=== PATIENT | female | born 1985 | race African-American/Black ===

== ENCOUNTER 2016-12-08 09:43 | Emergency (ER) | payer BC ==
--- OUTSIDE RECORDS SUMMARY | 2016-12-08 10:06 | XMS REPORT | Continuity of Care Document ---
:1985 Author Organization [facility] ([facility]) Address [address] [place] [address] Phone [phone] Care Team Providers Name Role Phone Nicole Heart Primary Care Provider [phone] Source Comments This disclosure is being made pursuant to the Care Everywhere program, applicable federal and state laws, and may not contain all informaitonavailable regarding this patient.[facility] ([facility]) Active Allergies and Adverse Reactions No Known Allergies Current Medications Prescription Sig. Disp. Refills Start Date End Date Status multivitamin with Take by mouth Active minerals PO daily. Active Problems Problem Noted Date Normal spontaneous vaginal delivery 01/11/2015 History of atrial fibrillation 01/11/2015 Overview: CARDIOVASCULAR PROCEDURES ECHO Echo:Normal left ventricular size and systolic function.LV Ejection Fraction=65 % (based on visual estimate).No significant valve disorder. 01/11/2015 Anemia 01/11/2015 Hypoalbuminemia 01/11/2015 Resolved Problems Problem Noted Date Resolved Date Shortness of breath 01/11/2015 03/16/2016 Palpitations 01/11/2015 03/16/2016 A-fib 01/11/2015 01/11/2015 New onset a-fib 01/11/2015 03/16/2016 Acute systolic heart failure 01/11/2015 01/12/2015 Peripartum cardiomyopathy 01/11/2015 01/12/2015 Immunizations Name Dates Previously Given Next Due Influenza, unspecified 09/13/2014 Social History Tobacco Use Types Packs/Day Years Used Date Never Smoker Alcohol Use Drinks/Week oz/Week Comments No Last Filed Vital Signs Vital Sign Reading Time Taken Blood Pressure 118/78 03/16/2016 9:58 AM CDT Pulse 82 03/16/2016 9:58 AM CDT Temperature 36.6 C (97.9 F) 01/12/2015 8:38 AM CDT Respiratory Rate 16 02/03/2015 5:00 PM CDT Height 1.727 m (5' 7.99") 03/16/2016 9:58 AM CDT Weight 82.555 kg (182 lb) 03/16/2016 9:58 AM CDT Body Mass Index 27.68 03/16/2016 9:58 AM CDT Oxygen Saturation 99% 01/12/2015 9:50 AM CDT Plan of Care Health Maintenance Due Date Last Done Comments Hepatitis B Vaccine (1 of 3 - Primary Series) 1984 Tdap Vaccine 1995 Lipid Disorder Screening 2002 MMR Vaccine 2002 Td Vaccine 2002 Varicella Vaccine (1 of 2 - Adult - No Evidence of 2002 Immunity) Cervical Cancer Screening 2014 Influenza Vaccine: Seasonal (#1) 02/28/2016 09/13/2014 Results from Last 3 Months Not on file
--- NOTE | 2016-12-08 10:33 | ERNOTE ---
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 SHE REMEMBERS STARTING TO BREATHE FAST AND SHE WENT TO A QUIET ROOM ALONE . IN THE PAST SHE SAYS SHE TRIES TO GET SOME WHERE QUIET AND TAKE "DEEP BREATHS". SHE EVIDENTLY PASSED OUT AND FELL TO THE FLOOR FROM A SITTING POSITION AND ANOTHER TEACHER CALLED EMS. SHE DENIES ANY INJURY AND SAYS SHE FEELS FINE NOW. SHE CAN NOT RECALL ANY THING SPECIFIC THAT CAUSED THE PANIC ATTACK , AT LEAST NOT AT SCHOOL BUT SAYS SHE HAS A LOT OF OTHER STRESSES. SHE DENIES H.A. CHEST PAIN, CURRENT ILLNESS. SHE IS NOT ON ANY MEDS AND HAS NO ONGOING ILLNESS OR HEALTH PROBLEMS. THERE IS A FHX OF "HEART PROBLEMS". SHE HAD GESTATIONAL DIABETES AND PRE-ECLAMPSIA WITH HER LAST IN JUN. BUT EVERY THING CORRECTED AFTERWARD. SHE SAYS SHE IS NOT NOW. Review of Systems - Review of Systems Constitutional: Present: See HPI EYE: Present: no symptoms reported ENT: Present: no symptoms reported Respiratory: Present: shortness of breath Cardiology: Present: no symptoms reported Gastrointestinal/Abdominal: Present: no symptoms reported Genitourinary: Present: no symptoms reported Musculoskeletal: Present: no symptoms reported Skin: Present: no symptoms reported Neurological: Present: dizziness/light-headedness Endocrine: Present: no symptoms reported Hematologic/Lymphatic: Present: no symptoms reported Psych: Present: anxiety All Other Systems: All systems neg except as marked - Patient's Past Medical History Patient History - Medical: Other Patient History - Cardiac/Respiratory: Atrial Fibrillation Patient History - Cancer: No Hx of Cancer Patient History - Surgical Procedures: No surgical history Patient History - Other: None LMP (Calendar): 11/08/16 - Family History Father Family History - Medical: Diabetes Type 2, Other - Social History Living Situations: home Abuse History: No History of abuse Psych History: Hx of Depression Smoking Status: Never smoker Alcohol Use: none Drug Use: none - Immunizations Immunizations Up to Date: Yes Hx Pneumococcal Vaccination: No History of Influenza Vaccine: Yes Physical Exam - Physical Exam General Appearance: Present: wd/wn, alert, no apparent distress Eye Exam: Normal inspection: bilateral, PERRL: bilateral, EOMI: bilateral Ears, Nose, Throat: Present: normal ENT inspection Neck: Present: normal inspection Respiratory: Present: no respiratory distress, normal breath sounds, no accessory muscle use, chest nontender, lungs clear Cardiovascular/Chest: Present: regular rate, rhythm, no murmur, normal peripheral pulses Peripheral Pulses: N=norm/S=strong/W=weak/B=bound/A=absent: Radial (R): Normal, Radial (L): Normal, Dorsalis-pedis (R): Normal, Dorsalis-pedis (L): Normal Gastrointestinal/Abdominal: Present: normal bowel sounds Back Exam: Present: normal inspection Extremity Exam: Present: normal inspection, non-tender, normal range of motion, no edema Neurological Exam: Present: alert, oriented, normal mood/affect, no motor/ sensory deficits, 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 Results and Orders: LABS WNL - Vital Signs Patient's Vital Signs:: I have reviewed the patient's vital signs. Vital Signs: Vital Signs 12/08/16 09:45 Temperature 36.6 C Pulse Rate 100 Respiratory 14 Rate Blood Pressure 144/86 O2 Sat by Pulse 99 Oximetry ORTHOSTATICS ARE NORMAL , SEE NURSES NOTES. - EKG EKG: NSR EKG read: Interp. by me - Progress/Reassessment Chief Complaint: Syncopal Episode Progress:: Improved Plan - Plan Plan: GOING THRU THE PTS RECORDS I LEARN THAT SHE HAS HAD AN EPISODE OF RECORDED ATRIAL FIB WITH RVR IN ABOUT 2 YEARS AGO AND WAS ON MEDICATION FOR A SHORT TIME. RESEARCHING MORE I FIND AN EKG FROM 09/16/2015 RECORDING AFIB WITH RVR. THERE IS NO RECORD OF HER MEDS AT THE TIME BUT SHE DOES REMEMBER BEING ON METOPROLOL FOR A WHILE. SHE WAS NEVER ON ANY ANTICOAGULANT AND HAS NEVER FOLLOWED WITH A PCP OTHER THAN SOHAN WORRELL WHEN SHE WAS . I TALKED TO DR NICOLE OFFICE TO CHUCK Castellanos/Annika ON HER HOSTER MONITOR. Departure Clinical Impression: Syncope and collapse, Hyperventilation syndrome, History of atrial fibrillation - Departure Disposition: Home Follow Up Needed Condition: Good Instructions: Syncope, [id number], Atrial Fibrillation, [id number], Holter Monitoring Additional Instructions: WE HAVE SET UP AN APPOINTMENT FOR YOU FOR 15 DECEMBER AT 1015, APPT IS 1030 , BUT THEY NEED TO UPDATE INFO. RETURN TO THE ER IF YOU HAVE PROBLEMS BEFORE THEN. Referrals: Michele Nicole MD [Staff Physician] -
[2016-12-08 10:42] LABS: Hematocrit 35.2 % (37.0-47.0); Hemoglobin 11.4 gm/dL (12.5-16.0); Mean Cell Volume 79.1 fl (78-100); Mean Corpuscular Hemoglobin 25.6 pg (27-31); Mean Corpuscular Hgb Conc 32.4 g/dl (32-36); Mean Platelet Volume 9.5 fl (6.0-9.5); Neutrophil # 4.8 K/mm3 (1.3-6.0); Neutrophil % 63.2 % (42-75.0); Platelet Count 391 K/mm3 (150-450); Red Blood Count 4.45 M/mm3 (4.2-5.4); Red Cell Distribution Width 14.4 % (11.5-14.0); White Blood Count 7.6 K/mm3 (4.0-10.5)
[2016-12-08 10:50] LABS: Anion Gap 11.8 mmol/L (6.8-13.8); BUN/Creatinine Ratio 16.7 (9.0-21.6); Bilirubin, Total 0.3 mg/dL (0.0-1.1); Ca. Corrected For Albumin 9.1 mg/dL (8.4-10.2); Calcium * 8.6 mg/dL (7.9-10.9); Potassium 3.8 mmol/L (3.4-4.6); Total Protein 6.9 gm/dL (6.2-8.2)
[2016-12-08 10:59] LABS: Urine Bilirubin Negative (NEGATIVE); Urine Blood 25 /ul (NEGATIVE); Urine Ketone Negative (NEGATIVE); Urine Nitrite Negative (NEGATIVE); Urine Protein Negative (NEGATIVE); Urine Specific Gravity 1.015 SP.GR. (1.005-1.010); Urine Urobilinogen Normal (NORMAL)
[2016-12-08 11:10] LABS: Urine Appearance Clear; Urine Color Yellow; Urine RBC 0-5 /hpf (0-5); Urine WBC 0-5 /hpf (0-5)
[2016-12-08 11:11] LABS: Urine Bacteria 1+
[2016-12-08 12:29] VITALS: BP 135/63
== END 2016-12-08 13:11 | disposition home or self-care (01) ==
LOC: ER 09:43
DX: R55 Syncope and collapse (principal); Z86.79 Personal history of other diseases of the circulatory system

== ENCOUNTER 2017-04-25 20:23 | Emergency (ER) | payer BC, OTHER ==
[2017-04-25 20:35] VITALS: BP 148/100
[2017-04-25] MEDS ORDERED: AMOX TR/POTASSIUM CLAVULANATE 875 MG TABLET PO ONE (20:52)
[2017-04-25] MEDS ORDERED: AMOX TR/POTASSIUM CLAVULANATE 875 MG TABLET ONE (20:56)
--- NOTE | 2017-04-25 20:57 | ERNOTE ---
Date of Service: 04/25/17 Time Seen by Provider: 04/25/17 20:44 Stated Complaint: URI SYMPTOMS Presenting Symptoms:: cough, sore throat, runny nose Source: patient, RN notes reviewed Exam Limitations: no limitations Immunizations: IMMUNIZATION HX Immunizations Up to Date Yes History of Influenza Vaccine No Hx Pneumococcal Vaccination No Allergies/Adverse Reactions: Allergies No Known Allergies Allergy (Verified 04/25/17 20:35) Home Medications: HOME MEDICATIONS Amox Tr/Potassium Clavulanate [Augmentin 875-125 Tablet] 875 mg PO Q12H #20 tab 04/25/17 [Last Taken Unknown] - History of Present Ilness Narrative: 31 y/o female presents to the ED with URI symptoms for several days that have gotten worse. She has had sick contacts at home. She is approximately 10 weeks and has not yet had any care. Frequency/Possible Cause: Reports: illness exposure Prior Treatment: Denies: recently seen Review of Systems - Review of Systems Constitutional: Present: chills, diaphoresis, fatigue, malaise EYE: Absent: eye discharge, tearing ENT: Present: nose congestion, nasal drainage, sore throat. Absent: ear pain Respiratory: Present: cough. Absent: shortness of breath, wheezing Cardiology: Present: no symptoms reported Gastrointestinal/Abdominal: Absent: nausea, vomiting, abdominal pain Genitourinary: Present: no symptoms reported Musculoskeletal: Absent: muscle pain, joint pain Skin: Absent: rash, lesions Neurological: Present: headache. Absent: dizziness/light-headedness Endocrine: Present: no symptoms reported Hematologic/Lymphatic: Present: no symptoms reported Psych: Present: no symptoms reported - Patient's Past Medical History Patient History - Medical: No pertinent hx Patient History - Cardiac/Respiratory: Atrial Fibrillation, Cardiomyopathy - LVH EF 45-50 Patient History - Cancer: No Hx of Cancer Patient History - Surgical Procedures: Patient History - Other: None LMP (females 10-50): LMP (Calendar): 02/09/17 - Family History Father Family History - Medical: Diabetes Type 2, Other - Social History Living Situations: spouse Abuse History: No History of abuse Psych History: Hx of Depression Smoking Status: Never smoker Have you smoked in the past 12 months: No Do you dip or chew tobacco: No Alcohol Use: none Drug Use: none - Immunizations Immunizations Up to Date: Yes Hx Pneumococcal Vaccination: No History of Influenza Vaccine: No Physical Exam - Physical Exam General Appearance: Present: wd/wn, alert, no apparent distress Eye Exam: Normal inspection: bilateral Ears, Nose, Throat: Present: nasal congestion, sinus pain/drainage, pharyngeal erythema. Absent: abnormal TM (R), abnormal TM (L), pharyngeal swelling Neck: Present: normal inspection, nontender, supple Respiratory: Present: no respiratory distress, normal breath sounds, no accessory muscle use, lungs clear Cardiovascular/Chest: Present: regular rate, rhythm, no murmur Extremity Exam: Present: normal inspection, normal range of motion, no edema Neurological Exam: Present: alert, oriented, normal mood/affect, no motor/ sensory deficits Skin Exam: Present: normal color, warm/dry ED Progress - Results and Orders Patient's Lab Results:: I have reviewed the patient's lab results. - Vital Signs Patient's Vital Signs:: I have reviewed the patient's vital signs. Vital Signs: Vital Signs 04/25/17 20:27 Temperature 36.5 C Pulse Rate 126 H Respiratory 16 Rate Blood Pressure 148/100 O2 Sat by Pulse 98 Oximetry - Progress/Reassessment Chief Complaint: Upper Respiratory Symptoms Progress:: Unchanged Departure Clinical Impression: Sinusitis, acute Qualifiers: Sinusitis location: unspecified location Recurrence: non-recurrent Qualified Code(s): J01.90 - Acute sinusitis, unspecified - Departure Disposition: Home Follow Up Needed Condition: Stable Instructions: Sinusitis, Adult, [id number], Form - Excuse from Work, School, or Physical Activity Additional Instructions: Nasal saline spray as needed Tylenol for pain/fever [facility] - based on your last period you are 10 5/7 weeks and due 11/16/17 Prescriptions: Amox Tr/Potassium Clavulanate [Augmentin 875-125 Tablet] 875 mg PO Q12H #20 tab
== END 2017-04-25 21:01 | disposition home or self-care (01) ==
LOC: ER 20:23
DX: J01.90 Acute sinusitis, unspecified (principal); Z33.1 Pregnant state, incidental; Z3A.10 10 weeks gestation of pregnancy

== ENCOUNTER 2017-09-27 02:06 | Emergency (ER) | payer BC, OTHER ==
[2017-09-27 03:07] LABS: Hematocrit 35.8 % (37.0-47.0); Hemoglobin 12.1 gm/dL (12.5-16.0); Mean Cell Volume 81.7 fl (78-100); Mean Corpuscular Hemoglobin 27.6 pg (27-31); Mean Corpuscular Hgb Conc 33.8 g/dl (32-36); Mean Platelet Volume 10.2 fl (6.0-9.5); Neutrophil # 5.3 K/mm3 (1.3-6.0); Neutrophil % 62.7 % (42-75.0); Platelet Count 288 K/mm3 (150-450); Red Blood Count 4.38 M/mm3 (4.2-5.4); Red Cell Distribution Width 17.3 % (11.5-14.0); White Blood Count 8.5 K/mm3 (4.0-10.5)
[2017-09-27 03:08] LABS: Urine Bilirubin Negative (NEGATIVE); Urine Blood Negative /ul (NEGATIVE); Urine Ketone Negative (NEGATIVE); Urine Nitrite Negative (NEGATIVE); Urine Protein Negative (NEGATIVE); Urine Urobilinogen Normal (NORMAL)
--- NOTE | 2017-09-27 03:11 | ERNOTE ---
Chest Pain/Cardiac HPI Chief Complaint: Palpitations Time Seen by Provider: 09/27/17 02:18 Source: patient Exam Limitations: no limitations Immunizations: IMMUNIZATION HX Immunizations Up to Date Yes History of Influenza Vaccine Yes Hx Pneumococcal Vaccination No Allergies/Adverse Reactions: Allergies No Known Allergies Allergy (Verified 09/09/17 10:39) Home Medications: HOME MEDICATIONS Ferrous Sulfate [Iron] 325 mg PO BID 07/26/17 [Last Taken 07/25/17] Vits96/Iron Fum/Folic [ S] 1 tab PO DAILY 07/26/17 [Last Taken Unknown] Acetaminophen [Tylenol] 650 mg PO Q4H PRN 09/09/17 [Last Taken Unknown] Narrative: Pt States she woke up around 00:30 and had some dizziness and palpitations. she attempted to go back to sleep but could not. She was brought in by EMS with a-fib with RVR at approx 140 bpm. She continues to be minimally symptomatic with sight dizziness and some palpitations. Timing: constant Severity/Quality: moderate Review of Systems - Review of Systems Constitutional: Absent: recent illness ENT: Present: no symptoms reported Respiratory: Absent: shortness of breath, cough Cardiology: Present: See HPI. Absent: chest pain Gastrointestinal/Abdominal: Absent: nausea, vomiting Genitourinary: Present: no symptoms reported Musculoskeletal: Present: no symptoms reported Skin: Present: no symptoms reported Neurological: Present: no symptoms reported Endocrine: Present: no symptoms reported - Patient's Past Medical History Patient History - Medical: No pertinent hx Patient History - Cardiac/Respiratory: Atrial Fibrillation, Cardiomyopathy Patient History - Cancer: No Hx of Cancer Patient History - Surgical Procedures: Patient History - Other: None LMP (females 10-50): - Family History Father Family History - Medical: Diabetes Type 2, Other - Social History Living Situations: home Abuse History: No History of abuse Psych History: Hx of Depression Smoking Status: Never smoker Alcohol Use: none Drug Use: none - Immunizations Immunizations Up to Date: Yes Hx Pneumococcal Vaccination: No History of Influenza Vaccine: Yes Physical Exam - Physical Exam General Appearance: Present: wd/wn, alert, no apparent distress Head Exam: Present: normal inspection, no evidence of injury Neck: Present: normal inspection, nontender Respiratory: Present: no respiratory distress, normal breath sounds, no accessory muscle use Cardiovascular/Chest: Present: tachycardia, irregularly irregular Gastrointestinal/Abdominal: Present: nontender, distended - uterus appropriate for GA. FHT's 140 Back Exam: Present: normal inspection, normal range of motion Extremity Exam: Present: normal inspection, non-tender Neurological Exam: Present: alert, oriented, normal mood/affect, no motor/ sensory deficits Skin Exam: Present: normal color, warm/dry Lymphatic Exam: Present: no adenopathy ED Progress - Results and Orders Patient's Lab Results:: I have reviewed the patient's lab results. Results and Orders: Laboratory Tests 09/27/17 09/27/17 09/27/17 02:53 02:54 02:54 WBC 8.5 Hgb 12.1 L Hct 35.8 L Plt Count 288 PT 9.1 INR (Anticoag Therapy) 0.91 PTT ([place]) 26.2 Sodium Potassium Chloride Carbon Dioxide Anion Gap BUN Creatinine Random Glucose Calcium Total Bilirubin AST ALT Alkaline Phosphatase Troponin I Total Protein Albumin Urine Color Pale yellow Urine Appearance Clear Urine pH 7.0 Ur Specific [place] 1.010 Urine Protein Negative Urine Glucose (UA) Negative Urine Ketones Negative Urine Blood Negative Urine Nitrate Negative Urine Bilirubin Negative Urine Urobilinogen Normal Ur Leukocyte Esterase Negative Urine RBC 0-5 Urine WBC 0-5 Ur Epithelial Cells 5-10 H Urine Bacteria None seen Urine Culture Comments No culture indicated 09/27/17 02:54 WBC Hgb Hct Plt Count PT INR (Anticoag Therapy) PTT ([place]) Sodium 140 Potassium 3.7 Chloride 107 H Carbon Dioxide 22.5 L Anion Gap 14.2 H BUN 5 D Creatinine 0.51 Random Glucose 114 H Calcium 8.9 Total Bilirubin 0.2 AST 21 ALT 24 Alkaline Phosphatase 94 Troponin I Less than 0.017 Total Protein 6.6 Albumin 2.5 L Urine Color Urine Appearance Urine pH Ur Specific [place] Urine Protein Urine Glucose (UA) Urine Ketones Urine Blood Urine Nitrate Urine Bilirubin Urine Urobilinogen Ur Leukocyte Esterase Urine RBC Urine WBC Ur Epithelial Cells Urine Bacteria Urine Culture Comments - Vital Signs Patient's Vital Signs:: I have reviewed the patient's vital signs. Vital Signs: Vital Signs 09/27/17 09/27/17 02:09 02:20 Temperature 36.7 C Pulse Rate 158 H 160 H Respiratory 20 Rate Blood Pressure 136/93 O2 Sat by Pulse 100 Oximetry - EKG EKG: atrial fibrillation - with RVR EKG read: Interp. by me - Progress/Reassessment Chief Complaint: Palpitations Progress:: Unchanged Progress Note-Subjective: Spoke with Dr. Cheney and he thought cardizem may be appropriate but that a consult with [place] would also be appropriate. 09/27/17 03:[address] Landon Sims at [facility]. He asks that the patient be transferred there and they will take care of her and send back once stable. 09/27/17 04:04 09/27/17 04:20 Dr Rivers called back after talking to cardiology and they felt that 2.5 - 5 mg Metoprolol would be safe and may bring her HR down for transport. HR up to 180 - 200 at this time, 5 mg metoprolol ordered. Departure Clinical Impression: Atrial fibrillation with RVR, complicated by cardiac condition, antepartum - Departure Disposition: Short Term Hospital Inpatient Condition: Stable
[2017-09-27 03:20] LABS: Prothrombin Time (Patient) 9.1 Seconds (9.0-11.0)
[2017-09-27 03:22] LABS: INR 0.91 INR (0.90-1.10); Partial Thrombolplastin Time 26.2 Seconds (24-32)
[2017-09-27 03:31] LABS: ALT 24 U/L (19-67); AST 21 U/L (0-48); Albumin * 2.5 gm/dl (3.4-5.0); Alkaline Phosphatase * 94 U/L (50-170); Anion Gap 14.2 mmol/L (6.8-13.8); BUN/Creatinine Ratio 9.8 (9.0-21.6); Bilirubin, Total 0.2 mg/dL (0.0-1.1); Blood Urea Nitrogen 5 mg/dL (3-23); Ca. Corrected For Albumin 9.8 mg/dL (8.4-10.2); Calcium * 8.9 mg/dL (7.9-10.9); Carbon Dioxide 22.5 mmol/L (24-32.6); Chloride 107 mmol/L (97-106); Glucose * 114 mg/dL (70-110); Potassium 3.7 mmol/L (3.4-4.6); Sodium 140 mmol/L (132-142); Total Protein 6.6 gm/dL (6.2-8.2); Troponin I Less than 0.017 ng/ml (0.00-0.10)
[2017-09-27 03:49] LABS: Urine Appearance Clear; Urine Bacteria None Seen; Urine Color Pale Yellow; Urine RBC 0-5 /hpf (0-5); Urine WBC 0-5 /hpf (0-5)
[2017-09-27] MEDS ORDERED: METOPROLOL TARTRATE 1 MG/ML AMPUL IV ONE ×2 (04:12→04:15)
[2017-09-27 04:53] VITALS: BP 107/55
== END 2017-09-27 04:40 | disposition short-term general hospital (02) ==
LOC: ER 02:06
DX: Z3A.32 32 weeks gestation of pregnancy; I42.9 Cardiomyopathy, unspecified; I48.91 Unspecified atrial fibrillation; O99.413 Diseases of the circulatory system complicating pregnancy, third trimester

== ENCOUNTER 2018-11-30 01:42 | Observation (INO) ==
[2018-11-30] MEDS ORDERED: DILTIAZEM HCL 5 MG/ML VIAL IV ONE ×3 (01:58→02:09)
--- NOTE | 2018-11-30 02:07 | ERNOTE ---
Chest Pain/Cardiac HPI Date of Service: 11/30/18 Time Seen by Provider: 11/30/18 01:51 Source: patient Exam Limitations: no limitations Immunizations: IMMUNIZATION HX Immunizations Up to Date Yes History of Influenza Vaccine Yes Hx Pneumococcal Vaccination No Allergies/Adverse Reactions: Allergies No Known Allergies Allergy (Verified 11/27/18 16:07) Home Medications: HOME MEDICATIONS amoxicillin 875 mg-potassium clavulanate 125 mg tablet 1 tab PO Q12H 10 Days #20 tab 11/27/18 [Last Taken Unknown] benzonatate 200 mg capsule 200 mg PO TID PRN #30 cap 11/27/18 [Last Taken Unknown] fluticasone 50 mcg/actuation nasal spray,suspension 2 spray INTRANASAL DAILY #16 g 11/27/18 [Last Taken Unknown] Pain Score #1 Pain Score: 0 Narrative: 33-year-old female in hour ago was taking an antibiotic for sinusitis vomited suddenly went into rapid A. fib patient has a history of atrial fibrillation occurring during her 2 prior pregnancies she is in no discomfort no shortness of breath and denies 0 chest pain Date (Duration): 11/30/18 Time (Timing): 02:05 Timing: constant Severity/Quality: mild Location: other - none Chest Pain Radiation: no radiation Activities at Onset: none Modifying Factors - Worsens: Absent: antacids Nitro Today/Relief: no nitro taken today Aspirin Treatment Today: no aspirin today Associated Symptoms: Present: denies symptoms Prior Chest Pain/Cardiac Workup: Reports: prior chest pain Review of Systems - Review of Systems Constitutional: Present: no symptoms reported EYE: Present: no symptoms reported ENT: Present: no symptoms reported Respiratory: Present: no symptoms reported Cardiology: Present: palpitations Gastrointestinal/Abdominal: Present: no symptoms reported Genitourinary: Present: no symptoms reported Musculoskeletal: Present: no symptoms reported Skin: Present: no symptoms reported Neurological: Present: no symptoms reported Endocrine: Present: no symptoms reported Hematologic/Lymphatic: Present: no symptoms reported Psych: Present: no symptoms reported All Other Systems: All systems neg except as marked Medical History (Updated 11/27/18 @ 16:14 by Charlene Mahmood RN) Atrial fibrillation Onset Date: 10/04/17 Gestational diabetes Onset Date: 10/2014 Hypertension Onset Date: 02/29/16 Late care Onset Date: 08/02/16 Oligohydramnios Onset Date: 10/2014 Surgical History: Surgical History (Updated 11/27/18 @ 16:14 by Charlene Mahmood RN) Previous section Onset Date: 11/06/17 Family History: Family History (Updated 11/27/18 @ 16:16 by Charlene Mahmood RN) Mother Asthma Hypertension Hypothyroidism Father Diabetes Grandfather Heart disease Cancer Grandmother Diabetes CVA (cerebral vascular accident) Social History: Preferred Language Bhutanese Smoking Status Never smoker Abuse History No History of abuse Psych History Hx of Depression (Last Updated 11/27/18 @ 17:26 by Tamra Motta DNP) No Social History Section defined Physical Exam - Physical Exam General Appearance: Present: wd/wn, alert, no apparent distress Head Exam: Present: normal inspection Eye Exam: Normal inspection: bilateral, PERRL: bilateral, EOMI: bilateral Ears, Nose, Throat: Present: normal ENT inspection Neck: Present: normal inspection Respiratory: Present: no respiratory distress Cardiovascular/Chest: Present: regular rate, rhythm Peripheral Pulses: N=norm/S=strong/W=weak/B=bound/A=absent: Carotid (R): Normal, Carotid (L): Normal Gastrointestinal/Abdominal: Present: normal bowel sounds Back Exam: Present: normal inspection, normal range of motion Extremity Exam: Present: normal inspection Neurological Exam: Present: alert, oriented DTR: N=norm/NB=norm/brisk/A=abs/DD=dull/dimin/HC=hyperactive: Bicep (R): Normal, Bicep (L): Normal, Tricep (R): Normal, Tricep (L): Normal Skin Exam: Present: normal color, warm/dry Progress - Results and Orders Patient's Lab Results:: I have reviewed the patient's lab results. - Vital Signs Patient's Vital Signs:: I have reviewed the patient's vital signs. Vital Signs: Vital Signs 11/30/18 01:54 Temperature 36.2 C Pulse Rate 178 H Respiratory Rate 22 H O2 Sat by Pulse Oximetry 98 - EKG EKG #1 EKG: atrial fibrillation EKG read: Interp. by me EKG Comments: Atrial fibrillation RVR with a heart rate [address]-T wave abnormality - X-Ray X-Ray #1 X-Ray: chest Interpretation: Interp. by me X-ray Comments: No acute disease Plan - Plan Plan: cardiazem drip and heparin started ,patient to be admitted to ICU Dr Graham Pierce Clinical Impression: Atrial fibrillation with RVR - Departure Disposition: Short Term Hospital Inpatient Condition: Stable
[2018-11-30] MEDS ORDERED: NORMAL SALINE 1,000 ML IV ONE (02:09)
[2018-11-30 02:16] LABS: Hematocrit 40.6 % (37.0-47.0); Mean Cell Volume 87.3 fl (78-100); Mean Platelet Volume 10.4 fl (8-12.5); Neutrophil # 5.6 K/mm3 (1.3-6.0); Neutrophil % 56.7 % (42-75.0); Platelet Count 330 K/mm3 (150-450); Red Blood Count 4.65 M/mm3 (4.2-5.4); Red Cell Distribution Width 12.4 % (11.5-14.0)
[2018-11-30 02:30] LABS: BUN/Creatinine Ratio 8.3 (9.0-21.6); Blood Urea Nitrogen 8 mg/dL (3-23); Glucose * 251 mg/dL (70-110); INR 1.01 INR (0.92-1.08); Partial Thrombolplastin Time 25.4 Seconds (24-32)
[2018-11-30 02:31] LABS: ALT 21 U/L (19-67); AST 13 U/L (0-48); Albumin * 3.4 gm/dl (3.4-5.0); Alkaline Phosphatase * 90 U/L (50-170); Anion Gap 13.2 mmol/L (6.8-13.8); Bilirubin, Total 0.3 mg/dL (0.0-1.1); Ca. Corrected For Albumin 9.3 mg/dL (8.4-10.2); Calcium * 9.1 mg/dL (7.9-10.9); Carbon Dioxide 26.7 mmol/L (24-32.6); Chloride 105 mmol/L (97-106); Potassium 3.9 mmol/L (3.4-4.6); Sodium 141 mmol/L (132-142); Total Protein 7.6 gm/dL (6.2-8.2); Troponin I Less than 0.017 ng/mL (0.00-0.10)
[2018-11-30] MEDS: DILTIAZEM HCL 125 MG in DEXTROSE 5 % IN WATER 100 ML IV PRN ×4 (02:45→12:21)
[2018-11-30] MEDS ORDERED: HEPARIN SODIUM,PORCINE 5,000 UNITS/ML VIAL IV ONE (03:06)
[2018-11-30] MEDS ORDERED: HEPARIN SODIUM,PORCINE/D5W 25,000 UNITS/500 ML BAG IV PRN (03:08)
[2018-11-30] MEDS ORDERED: ACETAMINOPHEN 500 MG TABLET PO PRN (12:04)
--- NOTE | 2018-11-30 23:58 | HP ---
Chief Complaint - Chief Complaint Date of Service: 11/30/18 Time of Service: 08:30 Chief Complaint: Fast heart rate History of Present Illness: Soniya is a 33 yo female who presented to the [facility] ER with shortness of breath, palpitations, and fast heart rate. She reports she had a previous episode of atrial fibrillation in the past but it resolved with medication. She does not currently follow with cardiology and is not on blood thinners. She denies any recent changes with diet or exercise. Medical History (Updated 12/10/18 @ 17:01 by Frances Rinaldi, RN) Atrial fibrillation Onset Date: 10/04/17 Hypertension Onset Date: 02/29/16 Oligohydramnios Onset Date: 10/2014 Varicella without complication Onset Date: Unknown As a child. Gestational diabetes Onset Date: 10/2014 Late care Onset Date: 02/29/16 Surgical History: Surgical History (Updated 12/10/18 @ 17:01 by Frances Rinaldi RN) History of cardioversion Onset Date: ~2014 History of section Onset Date: 11/06/17 Dr. Yadi Horton, [facility]. 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 Smoking Status Never smoker Have you smoked in the past 12 No months Do you dip or chew tobacco No Abuse History No History of abuse Psych History Hx of Depression (Last Updated 11/27/18 @ 17:26 by Tamra Motta DNP) No Social History Section defined Review Of Systems (GEN) - Review of Systems Generalized/Overall Review: Absent: Weakness, Chills, Fever EENTM: Present: No Symptoms Reported Respiratory: Present: Shortness of Breath. Absent: Cough Cardiac: Present: Palpitations. Absent: Chest Pain, Edema Abdominal: Absent: Nausea, Vomiting Genitourinary: Present: No Symptoms Reported Musculoskeletal: Present: No Symptoms Reported Neurological: Present: No Symptoms Reported Skin: Present: No Symptoms Reported Endocrine: Present: No Symptoms Reported Immunizations: IMMUNIZATION HX Immunizations Up to Date Yes History of Influenza Vaccine Yes Hx Pneumococcal Vaccination No Allergies/Adverse Reactions: Allergies Allergy/AdvReac Type Severity Reaction Status Date / Time No Known Allergies Allergy Verified 12/09/18 15:39 Home Medications: HOME MEDICATIONS benzonatate 200 mg capsule 200 mg PO TID PRN #30 cap 11/27/18 [Last Taken Unknown] fluticasone 50 mcg/actuation nasal spray,suspension 2 spray INTRANASAL DAILY #16 g 11/27/18 [Last Taken Unknown] Exam - Exam Vital Signs: Vital Signs - Last Taken Temp 36.5 C 11/30/18 23:00 Pulse 86 11/30/18 23:00 Resp 16 11/30/18 23:00 BP 104/56 11/30/18 23:00 Pulse Ox 99 11/30/18 23:00 Constitutional: Present: Alert, Oriented x3, Cooperative ENT Exam: Present: hearing grossly normal Eye Exam: bilateral eye: normal inspection Respiratory: Present: lungs clear, normal breath sounds Cardiovascular/Chest: Present: tachycardia, irregularly irregular Peripheral Pulses: radial (R): 2+, radial (L): 2+ Abdomen: Present: Normal bowel sounds, soft, nontender, nondistended Skin Exam: Present: normal color, warm/dry, no cyanosis Lymphatic: Present: no adenopathy Neurologic: Present: alert, normal mood/affect, oriented x 3 Appearance: Present: appropriate appearance, appropriate insight Eye contact: Present: cooperative, good eye contact, normal speech Thoughts: Present: normal thought pattern, no apparent hallucination Diagnostic Studies: Abnormal Lab Results 11/30/18 Range/Units 02:10 Plasma Sodium 143 H (130-142) mmol/L BUN/Creatinine Ratio 8.3 L (9.0-21.6) Random Glucose 251 H (70-110) mg/dL Laboratory Results WBC 10.0 K/mm3 (4.0-10.5) 11/30/18 02:10 RBC 4.65 M/mm3 (4.2-5.4) 11/30/18 02:10 Hgb 13.0 gm/dL (12.5-16.0) 11/30/18 02:10 Hct 40.6 % (37.0-47.0) 11/30/18 02:10 MCV 87.3 fl (78-100) 11/30/18 02:10 MCH 28.0 pg (27-31) 11/30/18 02:10 MCHC 32.0 g/dl (32-36) 11/30/18 02:10 RDW 12.4 % (11.5-14.0) 11/30/18 02:10 Plt Count 330 K/mm3 (150-450) 11/30/18 02:10 MPV 10.4 fl (8-12.5) 11/30/18 02:10 Immature Gran % (Auto) 0.30 % (0.001-0.429) 11/30/18 02:10 Immature Gran # (Auto) 0.03 K/mm3 (0.000-0.0310) 11/30/18 02:10 56.7 % (42-75.0) 11/30/18 02:10 35.2 % (20-51) 11/30/18 02:10 5.3 % (0.0-9) 11/30/18 02:10 2.0 % (0.0-3.0) 11/30/18 02:10 0.5 % (0.0-1.0) 11/30/18 02:10 Nucleated RBC % 0.0 k/mm3 (0-1) 11/30/18 02:10 5.6 K/mm3 (1.3-6.0) 11/30/18 02:10 3.50 k/mm3 (1.5-3.5) 11/30/18 02:10 0.5 k/mm3 (0.0-1.0) 11/30/18 02:10 0.2 k/mm3 (0.0-0.7) 11/30/18 02:10 Absolute Basophils 0.1 k/mm3 (0.0-0.1) 11/30/18 02:10 PT 10.0 Seconds (9.1-10.7) 11/30/18 02:10 INR (Anticoag Therapy) 1.01 INR (0.92-1.08) 11/30/18 02:10 PTT ([place]ale) 25.4 Seconds (24-32) 11/30/18 02:10 0.19 ug/mL (0.19-0.49) D 11/30/18 02:10 Sodium 141 mmol/L (132-142) 11/30/18 02:10 143 mmol/L (130-142) H 11/30/18 02:10 Potassium 3.9 mmol/L (3.4-4.6) 11/30/18 02:10 Chloride 105 mmol/L (97-106) 11/30/18 02:10 Carbon Dioxide 26.7 mmol/L (24-32.6) 11/30/18 02:10 13.2 mmol/L (6.8-13.8) 11/30/18 02:10 BUN 8 mg/dL (3-23) D 11/30/18 02:10 0.96 mg/dL (0.4-1.4) 11/30/18 02:10 Est GFR (Non-Af Amer) 86 mL/min (60-130) D 11/30/18 02:10 8.3 (9.0-21.6) L 11/30/18 02:10 251 mg/dL (70-110) H 11/30/18 02:10 Calcium 9.1 mg/dL (7.9-10.9) 11/30/18 02:10 Calcium Adj for Albumin 9.3 mg/dL (8.4-10.2) 11/30/18 02:10 0.3 mg/dL (0.0-1.1) 11/30/18 02:10 AST 13 U/L (0-48) 11/30/18 02:10 ALT 21 U/L (19-67) 11/30/18 02:10 90 U/L (50-170) 11/30/18 02:10 Less than 0.017 ng/mL (0.00-0.10) 11/30/18 02:10 7.6 gm/dL (6.2-8.2) 11/30/18 02:10 3.4 gm/dl (3.4-5.0) 11/30/18 02:10 Serum HCG, Qual Negative (NEGATIVE) 11/30/18 02:10 Assessment/Plan - Narrative Narrative: Soniya is a 33 yo female with Atrial fibrillation with RVR. She will be admitted to observation on diltiazem drip in the SCU. No evidence of OK, infection, or dehydration. Will use drip to keep heart rate below 115 and monitor to see if she converts to sinus rhythm as she reports she has in the past. - Assessment/Plan (1) Atrial fibrillation with RVR Problem: Acute
--- NOTE | 2018-12-01 11:56 | DS ---
(1) Atrial fibrillation with RVR Problem: Acute Description of Stay: Soniya is a 33 yo female admitted for atrial fibrillation with rapid ventricular response. She was admitted to the SCU on a diltiazem drip to control rate. While on the diltiazem drip she converted to normal sinus rhythm. She was weaned off the drip and maintained normal sinus rhythm. She will be discharged to home and will be referred to cardiology to discuss need for further evaluation vs treatment against further episodes. Procedures Performed: none Results and Findings: Lab Pending Results 11/30/18 02:10: WBC 10.0, RBC 4.65, Hgb 13.0, Hct 40.6, MCV 87.3, MCH 28.0, MCHC 32.0, RDW 12.4, Plt Count 330, MPV 10.4, Immature Gran % (Auto) 0.30, Immature Gran # (Auto) 0.03, Neutrophils % 56.7, Lymphocytes % 35.2, Monocytes % 5.3, Eosinophils % 2.0, Basophils % 0.5, Nucleated RBC % 0.0, Neutrophils # 5.6, Lymphocytes # 3.50, Monocytes # 0.5, Eosinophils # 0.2, Absolute Basophils 0.1 11/30/18 02:10: PT 10.0, INR (Anticoag Therapy) 1.01, PTT ([place]) 25.4 11/30/18 02:10: Sodium 141, Plasma Sodium 143 H, Potassium 3.9, Chloride 105, Carbon Dioxide 26.7, Anion Gap 13.2, BUN 8 D, Creatinine 0.96, Est GFR (Non-Af Amer) 86 D, BUN/Creatinine Ratio 8.3 L, Random Glucose 251 H, Calcium 9.1, Calcium Adj for Albumin 9.3, Total Bilirubin 0.3, AST 13, ALT 21, Alkaline Phosphatase 90, Troponin I Less than 0.017, Total Protein 7.6, Albumin 3.4 11/30/18 02:10: D-Dimer 0.19 D 11/30/18 02:10: Serum HCG, Qual Negative Discharge Location: Home Disposition: Home self-care Condition: Stable Discharge Activity: Activity as tolerated Discharge Diet: General/regular food Referrals: Kirby Stevenson DO [Staff Physician] - One Week Gerson Joy MD [Associate] - (Next available to establish) Problem Oriented Discharge Instructions to Patient/Family: Atrial Fibrillation, [id number] Complete Home Medications List: Complete Home Medication List: amoxicillin 875 mg-potassium clavulanate 125 mg tablet 1 tab PO Q12H 10 Days #20 tab 11/27/18 benzonatate 200 mg capsule 200 mg PO TID PRN #30 cap 11/27/18 fluticasone 50 mcg/actuation nasal spray,suspension 2 spray INTRANASAL DAILY #16 g 11/27/18
[2018-12-01 12:25] VITALS: BP 139/88
== END 2018-12-01 12:40 | disposition home or self-care (01) ==
LOC: ER 01:42 → SCU 01:42
PROVIDERS: ADMIT Family Medicine; ATTEND Family Medicine
DX: I48.91 Unspecified atrial fibrillation
CPT/HCPCS: 36415; 71010; 71045; 80053; 84484; 84703; 85025; 85379; 85610; 85730; 93005; 96361; 96365; 96366; 96367; 96375; 99285; G0378